=== PATIENT | male | born 1980 | race Caucasian/White ===

== ENCOUNTER 2024-11-23 11:00 | Emergency (ER) | payer SELFPAY ==
[2024-11-23 11:14] VITALS: BMI 23.6
[2024-11-23 11:33] VITALS: BP 109/67
[2024-11-23] MEDS: SUBUTEX 8 MG SL (13:02)
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
[2024-11-23 15:49] VITALS: BP 106/76
== END 2024-11-23 15:56 ==
LOC: EMR 11:00
PROVIDERS: EMERGENCY PHYSICIAN Emergency Medicine
DX: S62.617A Displaced fracture of proximal phalanx of left little finger, initial encounter for closed fracture (principal); V27.49XA Other motorcycle driver injured in collision with fixed or stationary object in traffic accident, initial encounter; Y92.411 Interstate highway as the place of occurrence of the external cause; G89.4 Chronic pain syndrome
CPT/HCPCS: 99283; 26725; 71046; 72170; 73030; 73130; 73590